=== PATIENT | female | born 1970 | race Two or more races ===

== ENCOUNTER 2020-08-27 16:55 | Emergency (ER) | payer SELFPAY ==
[~2020-08-27] VITALS: Ht 165.1 cm; Wt 83.9 kg
[2020-08-27] MEDS ORDERED: diphenhdrAMINE HCL 50 MG/1 ML VL ONE (17:05)
[2020-08-27] MEDS ORDERED: methylPREDNISolone SOD SUCC 125 MG/2 ML VL ONE (17:05)
[2020-08-27] MEDS ORDERED: FAMOTIDINE (10MG/ML) 2ML VL IV ONE ×2 (17:07→17:15)
[2020-08-27] MEDS ORDERED: EPINEPHrine HCL 1 MG/1 ML AMP ONE (17:07)
[2020-08-27] MEDS ORDERED: diphenhdrAMINE HCL 50 MG/1 ML VL IV ONE (17:15)
[2020-08-27] MEDS ORDERED: EPINEPHrine HCL 1 MG/1 ML AMP SC ONE (17:15)
[2020-08-27] MEDS ORDERED: methylPREDNISolone SOD SUCC 125 MG/2 ML VL IV ONE (17:15)
[2020-08-27] MEDS ORDERED: SODIUM CHLORIDE 0.9% 1,000 ML IV ONE (17:40)
[2020-08-27 19:17] VITALS: BP 127/59
== END 2020-08-27 21:45 | disposition home or self-care (01) ==
LOC: ER 16:57
DX: T78.40XA Allergy, unspecified, initial encounter (principal); T78.3XXA Angioneurotic edema, initial encounter; X58.XXXA Exposure to other specified factors, initial encounter
CPT/HCPCS: 70360; 96361; 96372; 96374; 96375; 99284; J0171; J1200; J2930; J3490

== ENCOUNTER 2020-09-02 23:34 | Emergency (ER) | payer SELFPAY ==
[~2020-09-02] VITALS: Ht 165.1 cm; Wt 84.4 kg
[2020-09-03 00:12] VITALS: BP 138/75
[2020-09-03] MEDS ORDERED: diphenhdrAMINE HCL 25 MG CAP PO ONE (00:15)
[2020-09-03] MEDS ORDERED: methylPREDNISolone SOD SUCC 125 MG/2 ML VL IM ONE (00:15)
== END 2020-09-03 02:00 | disposition home or self-care (01) ==
LOC: ER 23:34
DX: T78.40XA Allergy, unspecified, initial encounter (principal); L50.9 Urticaria, unspecified; X58.XXXA Exposure to other specified factors, initial encounter
CPT/HCPCS: 96372; 99283; J2930